=== PATIENT | female | born 1995 | race Caucasian/White ===

== ENCOUNTER 2017-06-05 08:02 | Emergency (ER) | payer OTHER ==
[2017-06-05] MEDS: NORCO, ANEXSIA 5/325MG TABLET (HYDROcodone/ACETAMINOPHEN) PO (08:45)
== END 2017-06-05 08:55 | disposition home or self-care (01) ==
LOC: M ED 08:02
DX: S52.592A Other fractures of lower end of left radius, initial encounter for closed fracture (principal); W01.198A Fall on same level from slipping, tripping and stumbling with subsequent striking against other object, initial encounter; Y92.139 Unspecified place military base as the place of occurrence of the external cause; Y93.75 Activity, martial arts; Y99.1 Military activity
CPT/HCPCS: 73110